=== PATIENT | male | born 1985 | race Asian ===

== ENCOUNTER 2020-01-10 07:50 | Emergency (ER) | payer OTHER, SELFPAY ==
[~2020-01-10] VITALS: Ht 160 cm; Wt 77.1 kg
[2020-01-10 08:24] VITALS: Ht 160 cm; Wt 77.1 kg
[2020-01-10 09:09] VITALS: BP 135/81
== END 2020-01-10 09:09 | disposition home or self-care (01) ==
LOC: ED
DX: R05 Cough (principal); R06.02 Shortness of breath; Z20.828 Contact with and (suspected) exposure to other viral communicable diseases
CPT/HCPCS: U0003-CS